=== PATIENT | female | born 1995 ===

== ENCOUNTER 2017-03-04 09:54 | Emergency (ER) | payer BC, OTHER ==
[2017-03-04 10:05] VITALS: BP 113/54; PULSE 70; RESP 16; TEMP 97.8; O2SAT 99; BMI 19.2
--- NOTE | 2017-03-04 10:26 | ED PDOC ---
HPI: Eye Injury/Pain Time Seen by Provider: 03/04/17 10:10 Chief Complaint (Nursing): Eye Problem Chief Complaint (Provider): Eye lid pain History Per: Patient History/Exam Limitations: no limitations Onset/Duration Of Symptoms: Days (Friday) Current Symptoms Are (Timing): Still Present Injury To Eye?: No Additional Complaint(s): Pt. noticed bump on right lower eye lid near the nose area. Is painful, no dc from it. No numbness, tingles, weakness, headaches, vision changes. Able to move eyes with no issues. No fever. No injury. No sore throat. Past Medical History Reviewed: Nursing Documentation, Vital Signs Vital Signs: Last Vital Signs Temp 97.8 F 03/04/17 10:04 Pulse 70 03/04/17 10:04 Resp 16 03/04/17 10:04 BP 113/54 L 03/04/17 10:04 Pulse Ox 99 03/04/17 10:04 - Medical History PMH: No Chronic Diseases - Surgical History Surgical History: No Surg Hx - Family History Family History: States: Unknown Family Hx - Social History Alcohol: None Drugs: Denies - Home Medications Home Medications: Ambulatory Orders Medication Instructions Recorded Famotidine [Pepcid] 40 mg PO DAILY #10 tab 09/26/16 Ibuprofen [Motrin] 600 mg PO TID PRN #30 tab 09/26/16 Ondansetron [Zofran] 4 mg PO Q8H #8 tab 09/26/16 Triamcinolone Acetonide [Nasacort 1 spray NS DAILY #1 unit 09/26/16 Allergy 24Hr] Erythromycin 0.5% [Ilytocin] 3.5 gm RIGHTEYE QID 5 Days 03/04/17 Ibuprofen [Motrin] 600 mg PO TID 7 Days 03/04/17 - Allergies Allergies/Adverse Reactions: Allergies Allergy/AdvReac Type Severity Reaction Status Date / Time No Known Allergies Allergy Verified 10/19/15 15:04 Review of Systems Constitutional: Negative for: Fever, Weakness Eyes: Positive for: Eyelid Inflammation. Negative for: Vision Change, Conjunctivae Inflammation, Redness ENT: Negative for: Ear Pain, Ear Discharge, Nose Pain, Nose Discharge Cardiovascular: Negative for: Chest Pain Respiratory: Negative for: Cough, Shortness of Breath Musculoskeletal: Negative for: Neck Pain Skin: Negative for: Rash Neurological: Negative for: Weakness, Numbness, Headache, Dizziness Physical Exam - Reviewed Nursing Documentation Reviewed: Yes Vital Signs Reviewed: Yes - Physical Exam Appears: Positive for: Non-toxic, No Acute Distress Head Exam: Positive for: ATRAUMATIC, NORMAL INSPECTION, NORMOCEPHALIC Skin: Positive for: Normal Color, Warm, DRY Eye Exam: Positive for: EOMI, PERRL, Other (R lower lid medial with swelling and mild tenderness; no dc. ). Negative for: Nystagmus, Periorbital swelling, Periorbital tenderness, Conjunctival injection ENT: Positive for: Normal ENT Inspection. Negative for: Nasal Congestion, Pharyngeal Erythema Neck: Positive for: Normal, Painless ROM, Supple Cardiovascular/Chest: Positive for: Regular Rate, Rhythm Respiratory: Positive for: Normal Breath Sounds Back: Positive for: Normal Inspection. Negative for: L CVA Tenderness, R CVA Tenderness Neurologic/Psych: Positive for: Alert, Oriented. Negative for: Motor/Sensory Deficits - ECG O2 Sat by Pulse Oximetry: 99 Pulse Ox Interpretation: Normal - Progress ED Course And Treament: 1028: Stable. AAOx3. Pain controlled. Needs fu with eye doctor. Will rx antibiotic ointment. Disposition - Clinical Impression Clinical Impression: Sty - Patient ED Disposition Is Patient to be Admitted: No Counseled Patient/Family Regarding: Diagnosis, Need For Followup, Rx Given - Disposition Referrals: [facility] [Outside] - 03/05/17 Gorge Bach MD [Staff Provider] - 03/05/17 Disposition: Routine/Home Disposition Time: 10:30 Condition: STABLE Additional Instructions: Return if not better in 3 days. Prescriptions: Erythromycin 0.5% [Ilytocin] 3.5 gm RIGHTEYE QID 5 Days Ibuprofen [Motrin] 600 mg PO TID 7 Days Instructions: Stye (ED) Forms: [employer] (Welsh)
== END 2017-03-04 10:46 | disposition home or self-care (01) ==
LOC: H.ER 09:54
DX: H00.011 Hordeolum externum right upper eyelid (principal)

== ENCOUNTER 2017-05-23 09:36 | Emergency (ER) | payer OTHER ==
[2017-05-23 09:40] VITALS: BP 121/59; PULSE 73; RESP 18; TEMP 97.7; O2SAT 98
[2017-05-23 09:41] VITALS: BMI 18.5
--- NOTE | 2017-05-23 10:15 | ED PDOC ---
HPI: Eye Injury/Pain Time Seen by Provider: 05/23/17 09:43 Chief Complaint (Nursing): Eye Problem Chief Complaint (Provider): Eye Problem History Per: Patient History/Exam Limitations: no limitations Onset/Duration Of Symptoms: Days (x2 days) Current Symptoms Are (Timing): Still Present Additional Complaint(s): 22 y/o female presents to the emergency department with redness and discharge of the left eye x2 days. Reports her daughter had conjunctivitis earlier this weak. Denies blurry vision or eye pain. PMD: Dr. Melvin Pineda MD Past Medical History Reviewed: Historical Data, Nursing Documentation, Vital Signs Vital Signs: Last Vital Signs Temp 97.7 F 05/23/17 09:39 Pulse 73 05/23/17 09:39 Resp 18 05/23/17 09:39 BP 121/59 L 05/23/17 09:39 Pulse Ox 98 05/23/17 09:39 - Medical History PMH: No Chronic Diseases - Surgical History Surgical History: No Surg Hx - Family History Family History: States: Unknown Family Hx - Social History Current smoker - smoking cessation education provided: No Alcohol: None Drugs: Denies - Home Medications Home Medications: Ambulatory Orders Medication Instructions Recorded Famotidine [Pepcid] 40 mg PO DAILY #10 tab 09/26/16 Ibuprofen [Motrin] 600 mg PO TID PRN #30 tab 09/26/16 Ondansetron [Zofran] 4 mg PO Q8H #8 tab 09/26/16 Triamcinolone Acetonide [Nasacort 1 spray NS DAILY #1 unit 09/26/16 Allergy 24Hr] Erythromycin 0.5% [Ilytocin] 3.5 gm RIGHTEYE QID 5 Days tube 03/04/17 Ibuprofen [Motrin] 600 mg PO TID 7 Days tab 03/04/17 Tobramycin 0.3% [Tobramycin 5 Ml] 1 drop OP TID #1 bottle 05/23/17 - Allergies Allergies/Adverse Reactions: Allergies Allergy/AdvReac Type Severity Reaction Status Date / Time No Known Allergies Allergy Verified 05/23/17 09:47 Review of Systems ROS Statement: Except As Marked, All Systems Reviewed And Found Negative Eyes: Positive for: Redness (with discharge of the left eye). Negative for: Pain, Vision Change Physical Exam - Reviewed Nursing Documentation Reviewed: Yes Vital Signs Reviewed: Yes - Physical Exam Appears: Positive for: Well, Non-toxic, No Acute Distress Head Exam: Positive for: ATRAUMATIC, NORMAL INSPECTION, NORMOCEPHALIC Skin: Positive for: Normal Color, Warm, Dry Eye Exam: Positive for: EOMI, PERRL, Conjunctival injection (with injected sclera of the left eye) Neurologic/Psych: Positive for: Alert, Oriented (x3) - ECG O2 Sat by Pulse Oximetry: 98 (RA) Pulse Ox Interpretation: Normal Medical Decision Making Medical Decision Making: Time: 09:43 Initial Impression: Eye redness and discharge Initial Plan: --Evaluation Time: 10:05 Patient is medically stable, and requires no further treatment in the ED at this time. Patient will be discharged home with Rx for Tobramycin 0.3% 5 mL . Counseling was provided and all questions were answered regarding diagnosis and need for follow up with Dr. Gorge Bach MD. There is agreement to discharge plan. Return if symptoms persist or worsen. Clinical Impression: Conjunctivitis Scribe Attestation: Documented by Judy López, acting as a scribe for Markus Damian MD. Provider Scribe Attestation: All medical record entries made by the Scribe were at my direction and personally dictated by me. I have reviewed the chart and agree that the record accurately reflects my personal performance of the history, physical exam, medical decision making, and the department course for this patient. I have also personally directed, reviewed, and agree with the discharge instructions and disposition. Disposition - Clinical Impression Clinical Impression: Conjunctivitis - Patient ED Disposition Is Patient to be Admitted: No Counseled Patient/Family Regarding: Diagnosis, Need For Followup - Disposition Referrals: Gorge Bach MD [Staff Provider] - Disposition: Routine/Home Disposition Time: 10:05 Condition: FAIR Prescriptions: Tobramycin 0.3% [Tobramycin 5 Ml] 1 drop OP TID #1 bottle Instructions: Conjunctivitis (ED) Forms: [employer] (Armenian)
== END 2017-05-23 10:22 | disposition home or self-care (01) ==
LOC: H.ER 09:36
DX: H10.9 Unspecified conjunctivitis (principal)

== ENCOUNTER 2017-07-03 17:52 | Emergency (ER) | payer OTHER ==
[2017-07-03 17:52] VITALS: BMI 18.5
[2017-07-03 18:08] VITALS: BP 125/95; PULSE 76; RESP 16; TEMP 96; O2SAT 100
--- NOTE | 2017-07-03 18:28 | ED PDOC ---
HPI: Eye Injury/Pain Time Seen by Provider: 07/03/17 18:13 Chief Complaint (Nursing): Eye Problem Chief Complaint (Provider): Left pink eye History Per: Patient History/Exam Limitations: no limitations Onset/Duration Of Symptoms: Days (2) Current Symptoms Are (Timing): Still Present Wears Contact Lens?: Yes Additional Complaint(s): Patient is a 22 y/o female with no significant past medical history presenting to the emergency department for left pink eye ongoing for two days. Reports that she slept with her contact lens on and woke up in the morning with a pink eye and a feeling of dryness. Notes that this has happened last summer and the symptoms went away after using eye drops. Denies itchiness, discharge, changes to vision, or other complaints. PCP: Dr. Melvin Pineda Past Medical History Reviewed: Historical Data, Nursing Documentation, Vital Signs Vital Signs: Last Vital Signs Temp 96.0 F L 07/03/17 18:07 Pulse 76 07/03/17 18:07 Resp 16 07/03/17 18:07 BP 125/95 H 07/03/17 18:07 Pulse Ox 100 07/03/17 18:07 - Medical History PMH: No Chronic Diseases - Family History Family History: States: Unknown Family Hx - Home Medications Home Medications: Ambulatory Orders Medication Instructions Recorded Famotidine [Pepcid] 40 mg PO DAILY #10 tab 09/26/16 Ibuprofen [Motrin] 600 mg PO TID PRN #30 tab 09/26/16 Ondansetron [Zofran] 4 mg PO Q8H #8 tab 09/26/16 Triamcinolone Acetonide [Nasacort 1 spray NS DAILY #1 unit 09/26/16 Allergy 24Hr] Erythromycin 0.5% [Ilytocin] 3.5 gm RIGHTEYE QID 5 Days tube 03/04/17 Ibuprofen [Motrin] 600 mg PO TID 7 Days tab 03/04/17 Tobramycin 0.3% [Tobramycin 5 Ml] 1 drop OP TID #1 bottle 05/23/17 Ofloxacin Ophth 0.3% [Ocuflox 5 ml OD Q6 #1 bottle 07/03/17 Ophth 0.3%] - Allergies Allergies/Adverse Reactions: Allergies Allergy/AdvReac Type Severity Reaction Status Date / Time No Known Allergies Allergy Verified 07/03/17 18:07 Review of Systems ROS Statement: Except As Marked, All Systems Reviewed And Found Negative Eyes: Positive for: Redness (left eye with dryness). Negative for: Vision Change, Other (discharge, itchiness) Physical Exam - Reviewed Nursing Documentation Reviewed: Yes Vital Signs Reviewed: Yes - Physical Exam Appears: Positive for: Non-toxic, No Acute Distress Head Exam: Positive for: ATRAUMATIC, NORMAL INSPECTION, NORMOCEPHALIC Skin: Positive for: Normal Color, Warm, Dry Eye Exam: Positive for: Conjunctival injection (left eye) Neck: Positive for: Normal Cardiovascular/Chest: Positive for: Regular Rate, Rhythm Respiratory: Negative for: Accessory Muscle Use, Respiratory Distress Extremity: Positive for: Normal ROM Neurologic/Psych: Positive for: Alert, Oriented (x3) - ECG O2 Sat by Pulse Oximetry: 100 (RA) Pulse Ox Interpretation: Normal Medical Decision Making Medical Decision Makin:30 Patient is stable for discharge. Prescribed eye drops and instructed patient to follow up with an eye doctor. Patient verbalized understanding to return to ED if symptoms worsen. Clinical impression: Conjunctivitis ~ Scribe Attestation: Documented by Silva Rodriguez, acting as a scribe for DA Thapa. Provider Scribe Attestation: All medical record entries made by the Scribe were at my direction and personally dictated by me. I have reviewed the chart and agree that the record accurately reflects my personal performance of the history, physical exam, medical decision making, and the department course for this patient. I have also personally directed, reviewed, and agree with the discharge instructions and disposition. Disposition - Clinical Impression Clinical Impression: Conjunctivitis - Patient ED Disposition Is Patient to be Admitted: No Counseled Patient/Family Regarding: Diagnosis, Need For Followup, Rx Given - Disposition Referrals: Gorge Bach MD [Staff Provider] - Disposition: Routine/Home Disposition Time: 18:30 Condition: STABLE Additional Instructions: Apply eye drops as indicated. Please follow up with optho for further evaluation Prescriptions: Ofloxacin Ophth 0.3% [Ocuflox Ophth 0.3%] 5 ml OD Q6 #1 bottle Instructions: Conjunctivitis (ED) Forms: [employer] (Thai) - POA Present On Arrival: None
== END 2017-07-03 18:50 | disposition home or self-care (01) ==
LOC: H.ER 17:52
DX: H10.9 Unspecified conjunctivitis (principal)